=== PATIENT | female | born 1995 | race Caucasian/White ===

== ENCOUNTER 2019-02-12 15:29 | Emergency (ER) | payer OTHER ==
[~2019-02-12] VITALS: Ht 175.3 cm; Wt 63.5 kg
--- NOTE | 2019-02-12 16:02 | NUR ---
PT STATES WAS GIVEN SCRIPT YESTERDAY HAD TAKEN ONE PILL LAST PM AND 1/2 PILL THIS AM STATES NO BETTER TODAY
[2019-02-12] MEDS ORDERED: IOHEXOL 350 MG/ML 100 ML (OMNIPAQUE 350) VIAL IV ONE (18:00)
[2019-02-12] MEDS ORDERED: NS 100 ML (IVPB) BAG IV ONE (18:00)
[2019-02-12] MEDS ORDERED: MECLIZINE 25 MG (ANTIVERT) TAB PO ONE (18:00)
[2019-02-12] MEDS ORDERED: HOLD METFORMIN - RECEIVED CONTRAST 20 ML VIAL IV SCH (18:00)
--- NOTE | 2019-02-12 18:28 | ED Syncope ---
General Chief Complaint: Dizziness/Syncope Stated Complaint: DX W/ VERTIGO YESTERDAY, GOT WORSE Nursing Triage Note: AMB TO ROOM C/O BEING DIZZY SINCE SUNDAY. WAS SEEN AT CLINIC IN [place]. GIVEN MEDS NOT ANY BETTER. History of Present Illness Date Seen by Provider: Feb 12, 2019 Time Seen by Provider: 16:00 Initial Comments 23 year old female presents for vertigo. Her symptoms began 2 days ago. She was started on meclizine yesterday she had one tablet in the evening and a half a tablet at 0800 today. It makes her drowsy. She is continuing to have vertigo with some nausea. She reports left side of face has been feeling like "pins and needles or cold" she also reports both arms feel "tingly" No head or neck injuries. Timing/Prior Episodes: No Prior History Symptoms Prior to Episode: Blurred Vision, Nausea, Unknown Precipitating Factors: None Loss of Consciousness: No Loss of Consciousness Current Symptoms: Blurred Vision; No Chest Pain, No Diaphoresis; Dizziness; No Headache, No Injury, No Lightheadedness, No Loss of Bladder Control, No Loss of Bowel Control, No Motionless; Nausea; No Pale, No Shallow/Rapid Breathing, No Weak/Absent Pulse, No Weakness Allergies and Home Medications Allergies Coded Allergies: No Known Drug Allergies (Unverified , 02/12/19) Home Medications Ondansetron 4 Mg Tab.rapdis, 4 MG PO Q6H PRN for NAUSEA/VOMITING Prescribed by: KAREL RYDER on 02/12/19 150 Patient Home Medication List Home Medication List Reviewed: Yes Review of Systems Constitutional: see HPI, other (vertigo) EENTM: see HPI, no symptoms reported Respiratory: no symptoms reported, see HPI Cardiovascular: no symptoms reported, see HPI Gastrointestinal: no symptoms reported, see HPI Genitourinary: no symptoms reported, see HPI Musculoskeletal: no symptoms reported, see HPI Skin: no symptoms reported, see HPI Psychiatric/Neurological: No Symptoms Reported, See HPI All Other Systems Reviewed Negative Unless Noted: Yes Past Klmtfyd-Cgylih-Nhdccw Hx Past Med/Social Hx: Reviewed Nursing Past Med/Soc Hx Patient Social History Alcohol Use: Occasionally Uses Number of Drinks Today: 0 Recreational Drug Use: No Smoking Status: Never a Smoker Recent Foreign Travel: No Contact w/Someone Who Travel: No Recent Infectious Disease Expo: No Recent Hopitalizations: No Past Medical History Last Menstrual Period: Jan 28, 2019 Physical Exam Vital Signs Vital Signs - First Documented 02/12/19 02/12/19 15:43 19:13 Temp 98.1 Pulse 100 Resp 18 B/P (MAP) 112/80 (91) Pulse Ox 98 O2 Delivery Room Air Capillary Refill : Less Than 3 Seconds Height, Weight, BMI Height: 5'9.00" Weight: 140lbs. oz. 63.045546bn; BMI Method:Stated General Appearance: No Apparent Distress, WD/WN HEENT: PERRL/EOMI, TMs Normal, Normal ENT Inspection, Pharynx Normal Neck: Full Range of Motion, Normal Inspection, Non Tender, Supple Cardiovascular: Regular Rate, Rhythm, No Edema, No Murmur, Normal Peripheral Pulses Respiratory: Chest Non Tender, Lungs Clear, Normal Breath Sounds Gastrointestinal: Normal Bowel Sounds, Non Tender, Soft; No Distended, No Guarding, No Mass, No Rebound Back: Normal Inspection, No CVA Tenderness, No Vertebral Tenderness Extremities: Normal Capillary Refill, Normal Inspection, Normal Range of Motion, No Pedal Edema Neurologic/Psychiatric: Alert, Oriented x3, No Motor/Sensory Deficits, Normal Mood/Affect, immigration officer II-XII Norm as Tested Cranial Nerves: Normal Hearing, Normal Speech, PERRL Coordination/Gait: Normal Finger to Nose, Normal Gait Motor/Sensory: No Motor Deficit, No Sensory Deficit Skin: Normal Color, Warm/Dry Lymphatic: No Adenopathy Progress/Results/Core Measures Results/Orders My Orders Orders - KAREL RYDER Ct Head/Cervical Spine Wo (02/12/19 17:47) Urine Bedside (02/12/19 17:47) Meclizine Tablet (Antivert Tablet) (02/12/19 18:00) Medications Given in ED Current Medications Medications Dose Ordered Sig/Zachary Route Start Time Stop Time Status Last Admin Dose Admin Meclizine HCl 25 mg ONCE ONCE PO 02/12/19 18:00 02/12/19 18:01 DC 02/12/19 17:57 25 MG Vital Signs/I&O 02/12/19 02/12/19 15:43 19:13 Temp 98.1 98.1 Pulse 100 86 Resp 18 18 B/P (MAP) 112/80 (91) 106/76 (86) Pulse Ox 98 100 O2 Delivery Room Air Blood Pressure Mean: 91 Progress Progress Note : Time: 16:00 Progress Note Patient seen and evaluated. Unable to review her labs that were done at [facility] in [place] yesterday. She and her mom report all labs were normal. [address] of the head and neck. 1800 Meclizine 25 mg orally for vertigo. 1900 patient reports symptoms have improved, discharge instructions and return precautions reviewed. Departure Impression Primary Impression: Vertigo Disposition: HOME, SELF-CARE Condition: Improved Departure-Patient Inst. Decision time for Depature: 19:00 Referrals: NO,LOCAL PHYSICIAN (PCP/Family) Primary Care Physician Patient Instructions: Vertigo (a Type of Dizziness) (DC) Add. Discharge Instructions: Take meclizine 1 tablet every 8 hours for dizziness. Increase water intake. Use Zofran every 6-8 hours as needed for nausea. Follow-up with your primary care provider if symptoms are not improving or worsen Avoid driving or being on elevated surfaces if Dizzy. Return to emergency department for new, urgent health care needs. All discharge instructions reviewed with patient and/or family. Voiced understanding. Scripts Ondansetron (Ondansetron Odt) 4 Mg Tab.rapdis 4 MG PO Q6H PRN for NAUSEA/VOMITING, #8 TAB 0 Refills Prov: KAREL RYDER 02/12/19 KAREL RYDER Feb 12, 2019 18:28
--- NOTE | 2019-02-12 18:49 | Diagnostic Imaging Report ---
PROCEDURE: CT head and CT cervical spine without contrast. TECHNIQUE: Multiple contiguous axial images were obtained through the brain and cervical spine without the use of intravenous contrast. Sagittal and coronal reformations through the cervical spine were then performed. Auto Exposure Controls were utilized during the CT exam to meet ALARA standards for radiation dose reduction. INDICATION: Headache. Neck pain. Vertigo. COMPARISON: None. FINDINGS: CT head: No intracranial hemorrhage, mass effect, hydrocephalus or extra-axial fluid collections. No CT evidence of a territorial infarction. The skull base and calvarium are intact. The mastoids are clear. CT cervical spine: Mild reversal of normal cervical lordosis. Alignment is otherwise unremarkable. Vertebral body heights are preserved. No fractures. No substantial spondylotic change or evidence of neural impingement. Lung apices are clear. The visualized paravertebral soft tissues are unremarkable. IMPRESSION: No acute intracranial or cervical spine CT findings. Dictated by: Dictated on workstation # [id number]
[2019-02-12 19:13] VITALS: BP 106/76
[2019-02-12] MEDS ORDERED: ONDA4TAB11 PO (19:13)
== END 2019-02-12 19:15 | disposition home or self-care (01) ==
LOC: ER 15:32
DX: R42 Dizziness and giddiness (principal)
CPT/HCPCS: 70450; 72125; 84703

== ENCOUNTER 2019-04-15 13:17 | Emergency (ER) | payer OTHER ==
[~2019-04-15] VITALS: Ht 175 cm; Wt 65.0 kg
[~2019-04-15 13:17] MED LIST: ONDA4TAB11 PO
[2019-04-15] MEDS ORDERED: ONDANSETRON 4 MG/2 ML (SDV) Z0FRAN IVP ONE (13:30)
[2019-04-15] MEDS ORDERED: MECLIZINE 25 MG (ANTIVERT) TAB PO ONE (13:30)
[2019-04-15] MEDS ORDERED: DIAZEPAM 5 MG (VALIUM) TABLET PO ONE (13:30)
[2019-04-15] MEDS ORDERED: NS IV 1000 ML 1,000 ML IV SCH (13:30)
[2019-04-15] MEDS ORDERED: KETOROLAC 15 MG/ML VIAL IVP ONE (13:30)
[2019-04-15 13:44] LABS: HEMATOCRIT 38 % (35-52); HEMOGLOBIN 13.3 G/DL (11.5-16.0); MEAN CORPUSCULAR HEMOGLOBIN 31 PG (25-34); MEAN CORPUSCULAR HGB CONC 35 G/DL (32-36); MEAN CORPUSCULAR VOLUME 89 FL (80-99); PLATELET COUNT 438 10^3/uL (130-400); RED CELL DISTRIBUTION WIDTH 11.6 % (10.0-14.5); WHITE BLOOD COUNT 10.4 10^3/uL (4.3-11.0)
[2019-04-15 13:45] LABS: BASOPHILS # (AUTO) 0.1 10^3/uL (0.0-0.1); BASOPHILS % (AUTO) 1 % (0-10); EOSINOPHILS # (AUTO) 0.2 10^3/uL (0.0-0.3); EOSINOPHILS % (AUTO) 2 % (0-10); LYMPHOCYTES % (AUTO) 29 % (12-44); MEAN PLATELET VOLUME 9.6 FL (7.4-10.4); MONOCYTES # (AUTO) 0.9 X 10^3 (0.0-1.0); MONOCYTES % (AUTO) 9 % (0-12); NEUTROPHILS # (AUTO) 6.1 X 10^3 (1.8-7.8); NEUTROPHILS % (AUTO) 59 % (42-75)
[2019-04-15] MEDS ORDERED: DEXAMETHASONE 4 MG/ML SDV (DECADRON) IV ONE (13:45)
--- NOTE | 2019-04-15 13:56 | ED General ---
General Chief Complaint: Chest Pain Stated Complaint: CHEST PAIN Nursing Triage Note: EFT UPPER CHEST PAIN FOR A MONTH BUT WORSENING TODAY Nursing Sepsis Screen: No Definite Risk History of Present Illness Date Seen by Provider: Apr 15, 2019 Time Seen by Provider: 13:52 Initial Comments Patient presenting to the emergency department via EMS for evaluation of multiple complaints including chest pain dizziness and vertigo rash. She says she was at work when all of a sudden she started feeling a dizzy sensation including lightheaded and vertigo. She said she had vertigo 2 months ago and it feels exactly the same and she feels a spinning sensation. She has some nausea along with it. She says the chest pain as left-sided pressure. No shortness of breath or diaphoresis but she does feel nauseated and flushed with a red rash at her Anteriorly and posteriorly as well as rash noted on her bilateral upper arms. She says she was at work when this started and she was doing her normal activity which is highly active that was not necessarily exerting herself more than usual. She denies any known exposures to anything new that she can think of including foods soaps detergents. She says that she is healthy and takes no m edications on a regular basis. She is anxious in appearance but nontoxic with normal vital signs other than mild tachycardia. Allergies and Home Medications Allergies Coded Allergies: No Known Drug Allergies (Unverified , 02/12/19) Home Medications Ondansetron 4 Mg Tab.rapdis, 4 MG PO Q6H PRN for NAUSEA/VOMITING Prescribed by: KAREL RYDER on 02/12/19 5103 Patient Home Medication List Home Medication List Reviewed: Yes Review of Systems Review of Systems Constitutional: dizziness EENTM: no symptoms reported Respiratory: no symptoms reported Cardiovascular: chest pain Gastrointestinal: nausea Genitourinary: no symptoms reported Musculoskeletal: no symptoms reported Skin: no symptoms reported Psychiatric/Neurological: See HPI All Other Systems Reviewed Negative Unless Noted: Yes Past Hzceqes-Bxvlbc-Egwcpf Hx Patient Social History Alcohol Use: Occasionally Uses Recreational Drug Use: No Smoking Status: Never a Smoker 2nd Hand Smoke Exposure: No Recent Foreign Travel: Yes Contact w/Someone Who Travel: No Recent Infectious Disease Expo: No Recent Hopitalizations: No Physical Abuse: No Sexual Abuse: No Mistreated: No Fear: No Past Medical History Surgeries: No Respiratory: No Cardiac: No Neurological: No Genitourinary: No Gastrointestinal: No Musculoskeletal: No Endocrine: No HEENT: No Cancer: No Psychosocial: No Integumentary: No Blood Disorders: No Physical Exam Vital Signs Vital Signs - First Documented 04/15/19 04/15/19 13:20 13:41 Temp 37.3 Pulse 104 Resp 18 B/P (MAP) 122/72 (89) Pulse Ox 98 O2 Delivery Room Air Capillary Refill : Less Than 3 Seconds Height, Weight, BMI Height: 5'9.00" Weight: 140lbs. oz. 63.622520pg; 21.00 BMI Method:Stated General Appearance: No Apparent Distress, WD/WN, Anxious Eyes: Bilateral Eye Normal Inspection HEENT: PERRL/EOMI Neck: Supple Respiratory: Lungs Clear, No Respiratory Distress Cardiovascular: No Edema, Normal Peripheral Pulses, Tachycardia Gastrointestinal: Non Tender, Soft Back: Normal Inspection Extremity: Normal Capillary Refill Neurologic/Psychiatric: Alert, Oriented x3 Skin: Warm/Dry Progress/Results/Core Measures Suspected Sepsis Recent Fever Within 48 Hours: No Infection Criteria Present: None New/Unexplained Altered Menta: No Sepsis Screen: No Definite Risk SIRS Temperature: Pulse: 104 Respiratory Rate: 18 Laboratory Tests 04/15/19 13:32: White Blood Count 10.4 Blood Pressure 122 /72 Mean: 89 Laboratory Tests 04/15/19 13:32: Creatinine 0.72, Platelet Count 438H, Total Bilirubin 0.3 Results/Orders Lab Results Laboratory Tests Test 04/15/19 13:32 04/15/19 13:50 Range/Units White Blood Count 10.4 4.3-11.0 10^3/uL Red Blood Count 4.29 L 4.35-5.85 10^6/uL Hemoglobin 13.3 11.5-16.0 G/DL Hematocrit 38 35-52 % Mean Corpuscular Volume 89 80-99 FL Mean Corpuscular Hemoglobin 31 25-34 PG Mean Corpuscular Hemoglobin Concent 35 32-36 G/DL Red Cell Distribution Width 11.6 10.0-14.5 % Platelet Count 438 H 130-400 10^3/uL Mean Platelet Volume 9.6 7.4-10.4 FL Neutrophils (%) (Auto) 59 42-75 % Lymphocytes (%) (Auto) 29 12-44 % Monocytes (%) (Auto) 9 0-12 % Eosinophils (%) (Auto) 2 0-10 % Basophils (%) (Auto) 1 0-10 % Neutrophils # (Auto) 6.1 1.8-7.8 X 10^3 Lymphocytes # (Auto) 3.0 1.0-4.0 X 10^3 Monocytes # (Auto) 0.9 0.0-1.0 X 10^3 Eosinophils # (Auto) 0.2 0.0-0.3 10^3/uL Basophils # (Auto) 0.1 0.0-0.1 10^3/uL D-Dimer 0.54 H 0.00-0.49 UG/ML Sodium Level 138 135-145 MMOL/L Potassium Level 3.8 3.6-5.0 MMOL/L Chloride Level 99 98-107 MMOL/L Carbon Dioxide Level 26 21-32 MMOL/L Anion Gap 13 5-14 MMOL/L Blood Urea Nitrogen 16 7-18 MG/DL Creatinine 0.72 0.60-1.30 MG/DL Estimat Glomerular Filtration Rate > 60 BUN/Creatinine Ratio 22 Glucose Level 94 70-105 MG/DL Calcium Level 9.9 8.5-10.1 MG/DL Corrected Calcium 8.5-10.1 MG/DL Magnesium Level 2.0 1.6-2.4 MG/DL Total Bilirubin 0.3 0.1-1.0 MG/DL Aspartate Amino Transf (AST/SGOT) 18 5-34 U/L Alanine Aminotransferase (ALT/SGPT) 15 0-55 U/L Alkaline Phosphatase 56 40-136 U/L Troponin I < 0.30 <0.30 NG/ML Total Protein 7.7 6.4-8.2 GM/DL Albumin 4.7 H 3.2-4.5 GM/DL Lipase 16 8-78 U/L Urine Color PALE YELLOW Urine Clarity CLEAR Urine pH 6.0 5-9 Urine Specific Capulin <=1.005 1.016-1.022 Urine Protein NEGATIVE NEGATIVE Urine Glucose (UA) NEGATIVE NEGATIVE Urine Ketones NEGATIVE NEGATIVE Urine Nitrite NEGATIVE NEGATIVE Urine Bilirubin NEGATIVE NEGATIVE Urine Urobilinogen 0.2 NORMAL MG/DL Urine Leukocyte Esterase NEGATIVE NEGATIVE Urine RBC (Auto) NEGATIVE NEGATIVE Urine RBC RARE /HPF Urine WBC RARE /HPF Urine Squamous Epithelial Cells RARE /HPF Urine Crystals NONE /LPF Urine Bacteria TRACE /HPF Urine Casts NONE /LPF Urine Mucus NONE /LPF Urine Culture Indicated NO Urine Test NEGATIVE NEGATIVE My Orders Orders - PARIS MONGE DO Cbc With Automated Diff (04/15/19 13:30) Comprehensive Metabolic Panel (04/15/19 13:30) Fibrin Degradation Products (04/15/19 13:30) Ua Culture If Indicated (04/15/19 13:30) Troponin I Fs (04/15/19 13:30) Lipase (04/15/19 13:30) Magnesium (04/15/19 13:30) Chest 1 View Ap/Pa Only (04/15/19 13:30) Hcg,Qualitative Urine (04/15/19 13:30) Ketorolac Injection (Toradol Injection) (04/15/19 13:30) Ondansetron Injection (Zofran Injectio (04/15/19 13:30) Ns Iv 1000 Ml (Sodium Chloride 0.9%) (04/15/19 13:30) Diazepam Tablet (Valium Tablet) (04/15/19 13:30) Meclizine Tablet (Antivert Tablet) (04/15/19 13:30) Dexamethasone Injection (Decadron Inject (04/15/19 13:45) Ct Angio Chest W (04/15/19 14:38) Iohexol Injection (Omnipaque 350 Mg/Ml 1 (04/15/19 14:45) Received Contrast (Hold Metformin- Contr (04/15/19 14:45) Sodium Chloride Flush (Catheter Flush Sy (04/15/19 14:45) Ns (Ivpb) (Sodium Chloride 0.9% Ivpb Bag (04/15/19 14:45) Medications Given in ED Current Medications Medications Dose Ordered Sig/Zachary Route Start Time Stop Time Status Last Admin Dose Admin Dexamethasone Sodium Phosphate 8 mg ONCE ONCE IV 04/15/19 13:45 04/15/19 13:47 DC 04/15/19 13:56 8 MG Diazepam 5 mg ONCE ONCE PO 04/15/19 13:30 04/15/19 13:32 DC 04/15/19 13:54 5 MG Iohexol 125 ml ONCE ONCE IV 04/15/19 14:45 04/15/19 14:56 DC 04/15/19 15:27 125 ML Ketorolac Tromethamine 15 mg ONCE ONCE IVP 04/15/19 13:30 04/15/19 13:32 DC 04/15/19 13:52 15 MG Meclizine HCl 25 mg ONCE ONCE PO 04/15/19 13:30 04/15/19 13:32 DC 04/15/19 13:54 25 MG Ondansetron HCl 4 mg ONCE ONCE IVP 04/15/19 13:30 04/15/19 13:32 DC 04/15/19 13:51 4 MG Sodium Chloride 10 ml NEEDED PRN IV 04/15/19 14:45 04/15/19 15:27 10 ML Sodium Chloride 100 ml ONCE ONCE IV 04/15/19 14:45 04/15/19 14:56 DC 04/15/19 15:27 80 ML Vital Signs/I&O 04/15/19 04/15/19 13:20 13:41 Temp 37.3 Pulse 104 Resp 18 B/P (MAP) 122/72 (89) Pulse Ox 98 O2 Delivery Room Air Capillary Refill : Less Than 3 Seconds Blood Pressure Mean: 89 POS Progress Note : Progress Note Patient with multiple nonspecific complaints. Her rash appears to be more of a sunburn appearance than actual hives or allergic reaction. Her rash is nonpruritic. Given her dizziness and chest pain I will check labs imaging and treat her symptoms with meclizine and Valium fluids and Zofran and Decadron. Patient did have slightly elevated d-dimer so a CT angios and was done which came back negative. Patient's rash resolved and she had no further movement sensation in her chest pain. I do not have an exact answer for the constellation of symptoms however I do not think it is acute coronary syndrome or pulmonary embolism dissection or other acute cardiopulmonary or neurologic conditions that are causing her symptoms. Her repeat vital signs are normal and she appears well with benign exam. Patient will be discharged in stable condition told to follow primary care provider within the next 2-3 days and come back to the ED sooner with worsening pain neurologic changes other general concerns. Patient aware and agreeable with plan and verbalized understanding of the above instructions. Departure Impression Primary Impression: Chest pain Additional Impressions: Vertigo Dermatitis Disposition: HOME, SELF-CARE Condition: Stable Departure-Patient Inst. Referrals: NO,LOCAL PHYSICIAN (PCP/Family) Primary Care Physician Patient Instructions: Chest Pain That Is Not Caused by the Heart (DC) PARIS MONGE DO Apr 15, 2019 13:56 POS
[2019-04-15 14:02] LABS: BACTERIA,URINE TRACE /HPF; BILIRUBIN,URINE NEGATIVE (NEGATIVE); CLARITY,URINE CLEAR; COLOR,URINE PALE YELLOW; GLUCOSE, URINE (UA) NEGATIVE (NEGATIVE); KETONES,URINE NEGATIVE (NEGATIVE); LEUKOCYTE ESTERASE ,URINE NEGATIVE (NEGATIVE); NITRITE,URINE NEGATIVE (NEGATIVE); PROTEIN,URINE NEGATIVE (NEGATIVE); RBC,URINE RARE /HPF; SQUAMOUS EPITHELIAL CELL,UR RARE /HPF; WBC,URINE RARE /HPF
[2019-04-15 14:07] LABS: ALANINE AMINOTRANSFERASE 15 U/L (0-55); ALKALINE PHOSPHATASE 56 U/L (40-136); BILIRUBIN,TOTAL 0.3 MG/DL (0.1-1.0); BUN/CREATININE RATIO 22; CALCIUM 9.9 MG/DL (8.5-10.1); CARBON DIOXIDE 26 MMOL/L (21-32); CHLORIDE 99 MMOL/L (98-107); CREATININE SERUM 0.72 MG/DL (0.60-1.30); GFR ESTIMATED > 60; GLUCOSE 94 MG/DL (70-105); POTASSIUM 3.8 MMOL/L (3.6-5.0); SODIUM 138 MMOL/L (135-145); TOTAL PROTEIN 7.7 GM/DL (6.4-8.2)
[2019-04-15 14:08] LABS: ALBUMIN 4.7 GM/DL (3.2-4.5); LIPASE 16 U/L (8-78)
--- NOTE | 2019-04-15 14:10 | Diagnostic Imaging Report ---
EXAMINATION: Chest 1 view. HISTORY: Chest pain. FINDINGS: No comparison available. The lungs are clear. No edema. No pneumonia. No pleural effusion. No pneumothorax. Heart is normal in size. IMPRESSION: 1. Clear lungs. Dictated by: Dictated on workstation # [id number]
[2019-04-15] MEDS ORDERED: CATHETER FLUSH 10 ML SYR IV PRN (14:45)
[2019-04-15] MEDS ORDERED: IOHEXOL 350 MG/ML 150 ML (OMNIPAQUE 350) VIAL IV ONE (14:45)
[2019-04-15] MEDS ORDERED: NS 100 ML (IVPB) BAG IV ONE (14:45)
[2019-04-15] MEDS ORDERED: HOLD METFORMIN - RECEIVED CONTRAST 20 ML VIAL IV SCH (14:45)
--- NOTE | 2019-04-15 15:15 | NUR ---
Note ragini in ED - 04/15/19 at 1515 by KBELTRAM Called dispatch to page out EMS for transfer. Both trucks are out on a call, so there will be a delay in transfer. Family in room notified of delay.
--- NOTE | 2019-04-15 15:34 | Diagnostic Imaging Report ---
PROCEDURE: CT angiography of the chest with contrast. TECHNIQUE: Multiple contiguous axial images were obtained through the chest after uneventful bolus administration of intravenous contrast. 3D reconstructed CTA MIP acquisitions were also performed. Auto Exposure Controls were utilized during the CT exam to meet ALARA standards for radiation dose reduction. INDICATION: Chest pain and pressure. COMPARISON: No priors. FINDINGS: The pulmonary arterial branches are widely patent. There is no PE. The aorta is patent and nonaneurysmal. No mass or adenopathy. Lungs are clear. No thoracic effusion. No acute chest wall abnormality. IMPRESSION: Negative for PE or other acute abnormalities. Dictated by: Dictated on workstation # [id number]
[2019-04-15 16:05] VITALS: BP 110/75
== END 2019-04-15 16:07 | disposition home or self-care (01) ==
LOC: EDUNIT# 13:17 → ER FS 13:21
DX: R07.9 Chest pain, unspecified (principal); R42 Dizziness and giddiness; L30.9 Dermatitis, unspecified
CPT/HCPCS: 36415; 71045; 71275; 80053; 81000; 83690; 83735; 84484; 84703; 85025; 85379; 96361; 96374; 96375

== ENCOUNTER → 2019-06-24 | Outpatient (CLI) | payer OTHER ==
[2019-06-24 18:51] LABS: ALANINE AMINOTRANSFERASE 17 U/L (0-55); ALKALINE PHOSPHATASE 50 U/L (40-136); BILIRUBIN,TOTAL 0.2 MG/DL (0.1-1.0); BUN/CREATININE RATIO 15; CALCIUM 10.4 MG/DL (8.5-10.1); CARBON DIOXIDE 26 MMOL/L (21-32); CHLORIDE 102 MMOL/L (98-107); CREATININE SERUM 0.71 MG/DL (0.60-1.30); GFR ESTIMATED > 60; GLUCOSE 92 MG/DL (70-105); POTASSIUM 4.1 MMOL/L (3.6-5.0); SODIUM 142 MMOL/L (135-145)
[2019-06-25 14:53] LABS: FREE T4 (FREE THYROXINE) 1.05 NG/DL (0.70-1.48)
== END ==
LOC: LAB FS 18:08
PROVIDERS: ATTEND Nurse Practitioner
DX: R07.89 Other chest pain (principal); R06.00 Dyspnea, unspecified
CPT/HCPCS: 36415; 80053; 84439; 84443; 85379

== ENCOUNTER → 2019-08-27 | Outpatient (CLI) | payer OTHER ==
[2019-08-30 10:22] VITALS: BP 117/69
--- NOTE | 2019-08-30 10:22 | Cardiology Stress Test Report ---
Stress Test Report Date of Procedure/Referring: Date of Procedure: Aug 27, 2019 PCP Billie Anglin MD Admitting Physician No,Local Physician Indications: Palpitation Baseline Heart Rate: 91 Baseline Blood Pressure: Blood Pressure Systolic: 117 Blood Pressure Diastolic: 69 Baseline EKG: Baseline EKG: normal sinus rhythm Summary/Conclusion: Summary: In summary, the patient started exercising with a baseline heart rate, blood pressure and EKG mentioned above Patient was able to exercise for a total of 7 minutes on Mauro protocol, 8.5 METs Maximum heart rate 172 Maximum blood pressure 170/88 Stress EKG Minimal nondiagnostic changes Recovery EKG Return to baseline Conclusion: 1. Good exercise tolerance for a total of 7 minutes on Mauro protocol, 8.5 METs, achieving 88 percent of maximum expected heart rate 2. Minimal nondiagnostic EKG changes with exercise returned to baseline during recovery 3. No arrhythmia was noted BILLIE ANGLIN MD Aug 30, 2019 10:22
== END ==
LOC: CARD 12:13
PROVIDERS: ATTEND Internal Medicine Cardiovascular Disease
DX: R07.89 Other chest pain (principal); R06.09 Other forms of dyspnea; R42 Dizziness and giddiness
CPT/HCPCS: 93017; 93306

== ENCOUNTER → 2019-10-28 | Outpatient (CLI) | payer OTHER ==
--- NOTE | 2019-10-28 12:39 | Diagnostic Imaging Report ---
INDICATION: Back pain. EXAMINATION: Thoracic spine. FINDINGS: AP and lateral views of the thoracic spine show some degenerative disc change in the mid thoracic spine. The vertebral body height and alignment are normal. No fracture is seen. IMPRESSION: Minimal degenerative disc changes in the mid thoracic spine. Dictated by: Dictated on workstation # [id number]
--- NOTE | 2019-10-28 12:39 | Diagnostic Imaging Report ---
CLINICAL INDICATION: Patient with pain. EXAM: X-ray of the cervical spine AP and lateral views. COMPARISON: CT scan of the cervical spine dated 02/12/2019. FINDINGS: There is stable straightening of the cervical spine posture centered at C4-C5 level. There is no acute cervical spine fracture or dislocation. Odontoid views are unremarkable. There is no prevertebral soft tissue thickening. Intervertebral disc heights are maintained. IMPRESSION: Stable straightening of the cervical spine posture centered at C4-C5 level. Otherwise, there is no other significant abnormality seen as visualized. Dictated by: Dictated on workstation # [id number]
--- NOTE | 2019-10-28 12:41 | Diagnostic Imaging Report ---
CLINICAL INDICATION: Patient with pain. No known injury. EXAM: X-ray of the lumbar spine, three views. COMPARISON: None. FINDINGS: There is no acute lumbar spine fracture or dislocation. There is mild loss of disc space height at the L5-S1 level. Otherwise, lumbar spine is unremarkable. Sacroiliac joints are unremarkable. There is no pars defect. IMPRESSION: 1: There is no acute lumbar spine fracture or dislocation. 2: There is mild L5-S1 disc space height loss. This may be related to disc disease versus normal appearance for the patient. If there is concern for disc herniation, then MRI of the lumbar spine would better evaluate. Dictated by: Dictated on workstation # [id number]
== END ==
LOC: RAD FS 11:15
PROVIDERS: ATTEND Nurse Practitioner
DX: M47.814 Spondylosis without myelopathy or radiculopathy, thoracic region (principal); M54.2 Cervicalgia
CPT/HCPCS: 72040; 72070; 72100

== ENCOUNTER 2019-12-04 20:11 | Emergency (ER) | payer OTHER ==
[~2019-12-04] VITALS: Ht 175 cm; Wt 64.0 kg
--- NOTE | 2019-12-04 20:48 | ED General ---
General Chief Complaint: General Problems/Pain Stated Complaint: NUMBNESS OF ARMS,NAUSEA Nursing Triage Note: Pt states she has had bilateral hand numbness all day. She states that it started after she took Ibuprofen at 0900. Nursing Sepsis Screen: No Definite Risk Source of Information: Patient, Old Records, RN Notes Reviewed History of Present Illness Date Seen by Provider: Dec 04, 2019 Time Seen by Provider: 20:35 Initial Comments This patient presents to the emergency department 24-year-old female for complaining of bilateral hand numbness this been off and on today but actually has been going off and on for the past year. Patient also describes sometimes she'll get dizzy for the past year and has been previously on meclizine but does not have dizziness today. Patient states that she's been seen by neurology that states he she's had normal evaluation. I did discuss at length with patient about different options. Patient has a very flat affect. Most patient's complaints seem to be vague and be gone on for greater than a year. Patient was asked about depression issues versus anxiety issues. Patient denies any issues but has continued flat affect which we did discuss her affect. Patient is requesting an EKG. Vital signs are completely stable patient does not appear to be completely distress. Pain in left arm is reproducible with palpation. The patient states his been like this that she saw a chiropractor. Patient states she does take meclizine and doesn't currently have any dizziness. Patient states that at times she has problems with her appetite. Patient has problems with sleep. And we again discussed at length with patient about concerns for possible depression-related issues. Patient denies. I advised the patient that she needs have an extended length of physical exam an appointment with her primary care physician and does need a depression screening. Patient states understanding. Associated Systoms: No Denies Symptoms, No Chest Pain, No Cough, No Diaphoresis, No Fever/Chills, No Headaches; Loss of Appetite, Malaise; No Nausea/Vomiting, No Rash, No Seizure, No Shortness of Air, No Syncope, No Weakness, No Other Allergies and Home Medications Allergies Coded Allergies: No Known Drug Allergies (Unverified , 02/12/19) Home Medications Ondansetron 4 Mg Tab.rapdis, 4 MG PO Q6H PRN for NAUSEA/VOMITING Prescribed by: KAREL RYDER on 02/12/191912 Patient Home Medication List Home Medication List Reviewed: Yes Review of Systems Review of Systems Constitutional: see HPI, malaise EENTM: No see HPI, No no symptoms reported, No ear discharge, No hearing loss, No ear pain, No blurred vision, No double vision, No eye pain, No tearing, No vision loss, No dental problems, No hoarseness, No mouth pain, No mouth swelling, No epistaxis, No nose congestion, No nose pain, No throat pain, No throat swelling, No other Respiratory: No no symptoms reported, No see HPI, No cough, No dyspnea on exertion, No hemoptysis, No orthopnea, No phlegm, No short of breath, No stridor, No wheezing, No other Cardiovascular: No no symptoms reported, No see HPI, No chest pain, No edema, No Hx of Intervention, No palpitations, No syncope, No vascular heart diseas, No other Gastrointestinal: No RUQ, No LUQ, No RLQ, No LLQ, No no symptoms reported, No see HPI, No abdominal pain, No constipation, No diarrhea, No dysphagia, No hematemesis, No heartburn, No jaundice, No loss of appetite, No melena, No nausea, No vomiting, No other Musculoskeletal: No no symptoms reported, No see HPI, No back pain, No gout, No joint pain, No joint swelling; muscle pain; No muscle stiffness, No muscle cramps, No muscle twitching, No muscle weakness, No neck pain, No other Skin: No no symptoms reported, No see HPI, No change in color, No change in hair/nails, No dryness, No hx of skin cancer, No lesions, No lumps, No pruritus, No rash, No other Psychiatric/Neurological: See HPI Past [id number] Hx Patient Social History Alcohol Use: Denies Use Recreational Drug Use: No Smoking Status: Never a Smoker 2nd Hand Smoke Exposure: No Recent Foreign Travel: No Contact w/Someone Who Travel: No Recent Infectious Disease Expo: No Recent Hopitalizations: No Physical Abuse: No Sexual Abuse: No Past Medical History Surgeries: No Respiratory: No Cardiac: No Neurological: No Genitourinary: No Gastrointestinal: No Musculoskeletal: No Endocrine: No HEENT: No Cancer: No Psychosocial: No Integumentary: No Blood Disorders: No Physical Exam Vital Signs Vital Signs - First Documented 12/04/19 20:11 Temp 36.4 Pulse 90 Resp 16 B/P (MAP) 133/77 (95) Pulse Ox 100 O2 Delivery Room Air Capillary Refill : Less Than 3 Seconds Height, Weight, BMI Height: 5'9.00" Weight: 140lbs. oz. 63.113258kh; 20.00 BMI Method:Stated General Appearance: No Apparent Distress, WD/WN HEENT: PERRL/EOMI, TMs Normal, Normal ENT Inspection, Pharynx Normal Neck: Full Range of Motion, Normal Inspection, Non Tender, Supple, Carotid Bruit Respiratory: Chest Non Tender, Lungs Clear, Normal Breath Sounds, No Accessory Muscle Use, No Respiratory Distress Cardiovascular: Regular Rate, Rhythm, No Edema, No Gallop, No JVD, No Murmur, Normal Peripheral Pulses Gastrointestinal: Normal Bowel Sounds, No Organomegaly, No Pulsatile Mass, Non Tender, Soft Back: Normal Inspection, No CVA Tenderness, No Vertebral Tenderness Extremity: Normal Capillary Refill, Normal Inspection, Normal Range of Motion, Non Tender, No Calf Tenderness, No Pedal Edema Neurologic/Psychiatric: Alert, Oriented x3, No Motor/Sensory Deficits, Normal Mood/Affect, Other (patient appears to have a flat affect.) Progress/Results/Core Measures Suspected Sepsis Recent Fever Within 48 Hours: No Infection Criteria Present: None New/Unexplained Altered Menta: No Sepsis Screen: No Definite Risk SIRS Temperature: Pulse: 90 Respiratory Rate: 16 Blood Pressure 133 /77 Mean: 95 Results/Orders My Orders Orders - NICHOLAS SHAVER MD Ekg Tracing (12/04/19 20:40) Vital Signs/I&O 12/04/19 20:11 Temp 36.4 Pulse 90 Resp 16 B/P (MAP) 133/77 (95) Pulse Ox 100 O2 Delivery Room Air Capillary Refill : Less Than 3 Seconds Blood Pressure Mean: 95 Progress Note : Time: 20:47 Progress Note This patient presents to the emergency department 24-year-old female for complaining of bilateral hand numbness this been off and on today but actually has been going off and on for the past year. Patient also describes sometimes she'll get dizzy for the past year and has been previously on meclizine but does not have dizziness today. Patient states that she's been seen by neurology that states he she's had normal evaluation. I did discuss at length with patient about different options. Patient has a very flat affect. Most patient's complaints seem to be vague and be gone on for greater than a year. Patient was asked about depression issues versus anxiety issues. Patient denies any issues but has continued flat affect which we did discuss her affect. Patient is requesting an EKG. Vital signs are completely stable patient does not appear to be completely distress. Pain in left arm is reproducible with palpation. The patient states his been like this that she saw a chiropractor. Patient states she does take meclizine and doesn't currently have any dizziness. Patient states that at times she has problems with her appetite. Patient has problems with sleep. And we again discussed at length with patient about concerns for possible depression-related issues. Patient denies. I advised the patient that she needs have an extended length of physical exam an appointment with her primary care physician and does need a depression screening. Patient states understanding. Patient given the following instructions. Patient to follow up with primary care physician within the week. Patient is to request an extended appointment time for full complete physical exam with depression screening. Continue all home medications. ECG Initial ECG Impression Date: Dec 04, 2019 Initial ECG Impression Time: 20:42 Initial ECG Rate: 73 Initial ECG Intervals: Normal Initial ECG Impression: Normal Comment Normal EKG heart rate 73 Departure Impression Primary Impression: Fatigue Additional Impression: Arthralgia Disposition: 01 HOME, SELF-CARE Condition: Stable Departure-Patient Inst. Decision time for Depature: 20:49 Referrals: NIGEL PENG APRN (PCP) Primary Care Physician Add. Discharge Instructions: Patient to follow up with primary care physician within the week. Patient is to request an extended appointment time for full complete physical exam with depression screening. Continue all home medications. All discharge instructions reviewed with patient and/or family. Voiced understanding. NICHOLAS SHAVER MD Dec 04, 2019 20:48
[2019-12-04 20:53] VITALS: BP 133/77
--- OUTSIDE RECORDS SUMMARY | 2019-12-04 22:24 | XMS REPORT | Continuity of Care Document ---
Demographics x Preferred Language Unknown Marital Status Unknown Presybeterian Affiliation Unknown Race Unknown Ethnic Group Unknown Author Organization Unknown Address Unknown Phone Unavailable Allergies Active Description Code Type Severity Reaction Onset Reported/Identified Relationship to Patient Clinical Status Yes No Known Drug Allergies [id number] Drug Allergy Unknown N/A 02/12/2019 Medications There is no data. Problems Date Dx Coded Attending Type Code Diagnosis Diagnosed By 02/12/2019 ALEKSEYKAREL Ot R42 DIZZINESS AND GIDDINESS 04/15/2019 PARIS MONGE DO Ot L30 .9 DERMATITIS, UNSPECIFIED 04/15/2019 PARIS MONGE DO Ot R07 .9 CHEST PAIN, UNSPECIFIED 04/15/2019 PARIS MONGE DO Ot R42 DIZZINESS AND GIDDINESS 04/18/2019 PARIS MONGE DO Ot L30 .9 DERMATITIS, UNSPECIFIED 04/18/2019 PARIS MONGE DO Ot R07 .9 CHEST PAIN, UNSPECIFIED 04/18/2019 PARIS MONGE DO Ot R42 DIZZINESS AND GIDDINESS 07/03/2019 NIGEL PENG APRN Ot R06.00 DYSPNEA, UNSPECIFIED 07/03/2019 NIGEL PENG APRN Ot R07.89 OTHER CHEST PAIN 09/09/2019 MARY ELLEN TORRES, BILLIE Ramos Ot R06. 09 OTHER FORMS OF DYSPNEA 09/09/2019 MARY ELLEN TORRES, BILLIE Ramos Ot R07. 89 OTHER CHEST PAIN 09/09/2019 MARY ELLEN TORRES, BILLIE Ramos Ot R42 DIZZINESS AND GIDDINESS 10/29/2019 NIGEL PENG APRN Ot M47.814 SPONDYLOSIS W/O MYELOPATHY OR RADICULOPA 10/29/2019 NIGEL PENG APRN Ot M54.2 CERVICALGIA 11/11/2019 NIGEL PENG APRN Ot M47.814 SPONDYLOSIS W/O MYELOPATHY OR RADICULOPA 11/11/2019 NIGEL PENG APRN Ot M54.2 CERVICALGIA Procedures There is no data. Results Test Result Range TSH w/ FREE T4 - 02/11/19 14:37 TSH 0.78 mIU/L NRG T4, FREE 1.2 ng/dL 0.8-1.8 CMP - 02/11/19 14:37 GLUCOSE 92 mg/dL 65-99 UREA NITROGEN (BUN) 10 mg/dL 7-25 CREATININE 0.70 mg/dL 0.50-1.10 eGFR NON-AFR. GUINEAN 120 mL/min/1.73m2 > OR = 60 eGFR 140 mL/min/1.73m2 > OR = 60 BUN/CREATININE RATIO NOT APPLICABLE (calc) 6-22 SODIUM 138 mmol/L 135-146 POTASSIUM 4.4 mmol/L 3.5-5.3 CHLORIDE 103 mmol/L 98-110 CARBON DIOXIDE 28 mmol/L 20-32 CALCIUM 10.0 mg/dL 8.6-10.2 PROTEIN, TOTAL 7.2 g/dL 6.1-8.1 ALBUMIN 4.8 g/dL 3.6-5.1 GLOBULIN 2.4 g/dL (calc) 1.9-3.7 ALBUMIN/GLOBULIN RATIO 2.0 (calc) 1.0-2. 5 BILIRUBIN, TOTAL 0.3 mg/dL 0.2-1.2 ALKALINE PHOSPHATASE 40 U/L 33-115 AST 15 U/L 10-30 ALT 10 U/L 6-29 CBC w/MANUAL DIFF - 02/11/19 14:37 WHITE BLOOD CELL COUNT 10.3 Thousand/uL 3.8-10.8 RED BLOOD CELL COUNT 4.30 Million/uL 3.8 0-5.10 HEMOGLOBIN 13.1 g/dL 11.7-15.5 HEMATOCRIT 40.4 % 35.0-45.0 MCV 94.0 fL 80.0-100.0 MCH 30.5 pg 27.0-33.0 MCHC 32.4 g/dL 32.0-36.0 RDW 11.8 % 11.0-15.0 PLATELET COUNT 418 Thousand/uL 140-400 MPV 9.6 fL 7.5-12.5 ABSOLUTE NEUTROPHILS 6602 cells/uL 1500- 7800 ABSOLUTE MONOCYTES 597 cells/uL 200-950 ABSOLUTE EOSINOPHILS 0 cells/uL 15-500 ABSOLUTE BASOPHILS 0 cells/uL 0-200 NEUTROPHILS 64.1 % NRG LYMPHOCYTES 26.2 % NRG MONOCYTES 5.8 % NRG EOSINOPHILS 0 % NRG BASOPHILS 0 % NRG ABSOLUTE BAND NEUTROPHILS 402 cells/uL 0 -750 ABSOLUTE LYMPHOCYTES 2699 cells/uL 850-3 900 BAND NEUTROPHILS 3.9 % NRG PLATELET ESTIMATION INCREASED ADEQUATE Complete blood count (CBC) with automate d white blood cell (WBC) differential - 04/15/19 13:32 Blood leukocytes automated count (number/volume) 10.4 10*3/uL 4.3-11.0 Blood erythrocytes automated count (number/volume) 4.29 10*6/uL 4.35-5.85 Venous blood hemoglobin measurement (mass/volume) 13.3 g/dL 11.5-16.0 Blood hematocrit (volume fraction) 38 % 35-52 Automated erythrocyte mean corpuscular volume 89 [ foz_us] 80-99 Automated erythrocyte mean corpuscular h emoglobin (mass per erythrocyte) 31 pg 25-34 Automated erythrocyte mean corpuscular h emoglobin concentration measurement (mass/volume) 35 g/dL 32-36 Automated erythrocyte distribution width ratio 11. 6 % 10.0- 14.5 Automated blood platelet count (count/volume) 438 10*3/uL 130-400 Automated blood platelet mean volume measurement 9.6 [foz_us] 7.4-10.4 Automated blood neutrophils/100 leukocytes 59 % 42-75 Automated blood lymphocytes/100 leukocytes 29 % 12-44 Blood monocytes/100 leukocytes 9 % 0-12 Automated blood eosinophils/100 leukocytes 2 % 0-10 Automated blood basophils/100 leukocytes 1 % 0-10 Blood neutrophils automated count (number/volume) 6.1 10*3 1.8-7.8 Blood lymphocytes automated count (number/volume) 3.0 10*3 1.0-4.0 Blood monocytes automated count (number/volume) 0. 9 10*3 0.0-1.0 Automated eosinophil count 0.2 10*3/uL 0 .0-0.3 Automated blood basophil count (count/volume) 0.1 10*3/uL 0.0-0.1 Comprehensive metabolic panel - 04/15/19 13:32 Serum or plasma sodium measurement (moles/volume) 138 mmol/L 135-145 Serum or plasma potassium measurement (moles/volume) 3.8 mmol/L 3.6-5.0 Serum or plasma chloride measurement (moles/volume) 99 mmol/L 98-107 Carbon dioxide 26 mmol/L 21-32 Serum or plasma anion gap determination (moles/volume) 13 mmol/L 5-14 Serum or plasma urea nitrogen measurement (mass/volume ) 16 mg/dL 7-18 Serum or plasma creatinine measurement (mass/volume) 0.72 mg/dL 0.60-1.30 Serum or plasma urea nitrogen/creatinine mass ratio 22 NRG Serum or plasma creatinine measurement w ith calculation of estimated glomerular filtration rate > NRG Serum or plasma glucose measurement (mass/volume) 94 mg/dL 70-105 Serum or plasma calcium measurement (mass/volume) 9.9 mg/dL 8.5-10.1 Serum or plasma total bilirubin measurement (mass/volu me) 0.3 mg/dL 0.1-1.0 Serum or plasma alkaline phosphatase debi surement (enzymatic activity/volume) 56 U/L 40-136 Serum or plasma aspartate aminotransfera se measurement (enzymatic activity/volume) 18 U/L 5-34 Serum or plasma alanine aminotransferase measurement (enzymatic activity/volume) 15 U/L 0-55 Serum or plasma protein measurement (mass/volume) 7.7 g/dL 6.4-8.2 Serum or plasma albumin measurement (mass/volume) 4.7 g/dL 3.2-4.5 Magnesium - 04/15/19 13:32 Magnesium 2.0 mg/dL 1.6-2.4 TROPONIN I FS - 04/15/19 13:32 TROPONIN I FS < 0.30 <0.30 Lipase - 04/15/19 13:32 Lipase 16 U/L 8-78 Urine beta human chorionic gonadotropin (hCG) measurement - 04/15/19 13:50 Urine beta human chorionic gonadotropin (hCG) measurem ent NEGATIVE NEGATIVE Complete urinalysis with reflex to cultu re - 04/15/19 13:50 Urine color determination PALE YELLOW N RG Urine clarity determination CLEAR NR G Urine pH measurement by test strip 6.0 5-9 Specific gravity of urine by test strip <= 1.016-1.022 Urine protein assay by test strip, semi-quantitative NEGATIVE NEGATIVE Urine glucose detection by automated test strip NE GATIVE NEGATIVE Erythrocytes detection in urine sediment by light micr oscopy NEGATIVE NEGATIVE Urine ketones detection by automated test strip NE GATIVE NEGATIVE Urine nitrite detection by test strip NEGATIVE NEGATIVE Urine total bilirubin detection by test strip NEGA TIVE NEGATIVE Urine urobilinogen measurement by automated test strip (mass/volume) 0.2 mg/dL NORMAL Urine leukocyte esterase detection by dipstick NEG ATIVE NEGATIVE Automated urine sediment erythrocyte cou nt by microscopy (number/high power field) RARE NRG Automated urine sediment leukocyte count by microscopy (number/high power field) RARE NRG Bacteria detection in urine sediment by light microsco py TRACE NRG Squamous epithelial cells detection in u rine sediment by light microscopy RARE NRG Crystals detection in urine sediment by light microsco py NONE NRG Casts detection in urine sediment by light microscopy NONE NRG Mucus detection in urine sediment by light microscopy NONE NRG Complete urinalysis with reflex to culture NO NRG GLUCOSE JACI 2 HOUR - 04/22/19 11:13 FASTING SPECIMEN 82 mg/dL 65-99 2 HOUR SPECIMEN 79 mg/dL <140 COMMENT NRG Comprehensive metabolic panel - 06/24/19 18:25 Serum or plasma sodium measurement (moles/volume) 142 mmol/L 135-145 Serum or plasma potassium measurement (moles/volume) 4.1 mmol/L 3.6-5.0 Serum or plasma chloride measurement (moles/volume) 102 mmol/L 98-107 Carbon dioxide 26 mmol/L 21-32 Serum or plasma anion gap determination (moles/volume) 14 mmol/L 5-14 Serum or plasma urea nitrogen measurement (mass/volume ) 11 mg/dL 7-18 Serum or plasma creatinine measurement (mass/volume) 0.71 mg/dL 0.60-1.30 Serum or plasma urea nitrogen/creatinine mass ratio 15 NRG Serum or plasma creatinine measurement w ith calculation of estimated glomerular filtration rate > NRG Serum or plasma glucose measurement (mass/volume) 92 mg/dL 70-105 Serum or plasma calcium measurement (mass/volume) 10.4 mg/dL 8.5-10.1 Serum or plasma total bilirubin measurement (mass/volu me) 0.2 mg/dL 0.1-1.0 Serum or plasma alkaline phosphatase debi surement (enzymatic activity/volume) 50 U/L 40-136 Serum or plasma aspartate aminotransfera se measurement (enzymatic activity/volume) 21 U/L 5-34 Serum or plasma alanine aminotransferase measurement (enzymatic activity/volume) 17 U/L 0-55 Serum or plasma protein measurement (mass/volume) 8.0 g/dL 6.4-8.2 Serum or plasma albumin measurement (mass/volume) 5.0 g/dL 3.2-4.5 Fibrin D-dimer FEU measurement in platel et poor plasma (mass/volume) - 06/24/19 18:25 Fibrin D-dimer FEU measurement in platelet poor plasma (mass/volume) 0.47 ug/mL 0.00-0.49 THYROID STIMULATING HORMONE - 06/24/19 1 8:25 THYROID STIMULATING HORMONE 0.91 u[iU]/mL 0.35-4.94 Serum or plasma thyroxine (T4) free chelly urement (mass/volume) - 06/24/19 18:25 Serum or plasma thyroxine (T4) free measurement (mass/ volume) 1.05 ng/dL 0.70-1.48 Encounters ACCT No. Visit Date/Time Discharge Status Pt. Type Provider Facility Loc./Unit Complaint [id number] 12/03/2019 15:40:00 ACT Outpatient [facility] [id number] 04/22/2019 09:00:00 Document Registration [id number] 02/11/2019 13:40:00 Document Registration [id number] 10/28/2019 11:15:00 23:59:59 CLS Outpatient NIGEL PENG APRN [facility] RAD FS DORSALGIA,CERVI CALGIA [id number] 08/27/2019 12:13:00 23:59:59 CLS Outpatient MARY ELLEN TORRES, BILLIE Ramos [facility] CARD ANTERIOR CHEST WALL JUANITA N, GREEN,DIZZINESS [id number] 06/24/2019 18:08:00 23:59:59 CLS Outpatient NIGEL PENG APRN [facility] LAB FS [id number] R 0789 [id number] 04/15/2019 13:21:00 16:07:00 DIS Emergency PARIS MONGE DO [facility] ER FS CHEST PAIN [id number] 02/12/2019 15:32:00 19:15:00 DIS Emergency KAREL RYDER [facility] ER DX W/ VERTIGO YESTERDAY , GOT WORSE
== END 2019-12-04 20:53 | disposition home or self-care (01) ==
LOC: EDUNIT# 20:11 → ER FS 20:12
DX: R53.83 Other fatigue (principal); M25.542 Pain in joints of left hand; M25.541 Pain in joints of right hand

== ENCOUNTER → 2020-02-11 | Outpatient (CLI) | payer OTHER ==
--- NOTE | 2020-02-11 12:31 | Diagnostic Imaging Report ---
INDICATION: Left knee pain. TIME OF EXAM: 11:58 AM FINDINGS: 3 views left knee demonstrate normal alignment. Joint spaces are well maintained. Articular surfaces are smooth. No fracture, dislocation or effusion is seen. IMPRESSION: No acute abnormality is detected. Dictated by: Dictated on workstation # [id number]
== END ==
LOC: RAD FS 11:30
PROVIDERS: ATTEND Nurse Practitioner Family
DX: M25.562 Pain in left knee (principal)
CPT/HCPCS: 73562

== ENCOUNTER → 2020-05-10 | Outpatient (CLI) | payer OTHER ==
--- NOTE | 2020-05-10 12:18 | Diagnostic Imaging Report ---
EXAMINATION: Magnetic resonance imaging of the left knee without intravenous contrast DATE: May 10, 2020. COMPARISON: Left knee radiographs February 11, 2020. INDICATION: 24-year-old female, left knee pain. Injury in December 2019. TECHNIQUE: Multiplanar, multisequence non contrast enhanced MR imaging was accomplished. FINDINGS: MENISCI: The medial meniscus is intact. The lateral meniscus is intact. LIGAMENTS AND TENDONS: The anterior and posterior cruciate ligaments are intact. The medial collateral ligament is intact. The iliotibial band, mid third lateral capsular ligament, fibular collateral ligament, biceps femoris tendon and conjoined tendon are intact. The quadriceps tendon and patella ligament are intact. JOINT: The articular cartilage surfaces are intact. There is no knee joint effusion, prominent synovitis, or intra-articular body. BONE: There is unremarkable bone marrow signal. Specifically, negative for fracture, osteomyelitis, osteonecrosis, or marrow replacing process. BURSAE AND SOFT TISSUES: No Bakers cyst. IMPRESSION: Unremarkable MRI of the left knee. Dictated by: Dictated on workstation # [id number]
== END ==
LOC: RAD 11:00
PROVIDERS: ATTEND Nurse Practitioner Family
DX: M25.562 Pain in left knee (principal); M25.60 Stiffness of unspecified joint, not elsewhere classified
CPT/HCPCS: 73721